=== PATIENT | male | born 1955 | race Caucasian/White ===

== ENCOUNTER → 2017-01-26 | Outpatient (CLI) | payer BC ==
[~2017-01-26] MED LIST: ASP81CT PO; CPR500T PO; ESCT10T PO; MELO-195 PO; RT-COMBINH IH
--- NOTE | 2017-01-26 13:39 | Diagnostic Imaging Report ---
EXAMINATION: Left heel INDICATION: Pain Heel and lateral views were obtained. There are no prior studies available for comparison. On the lateral view there is a thin band of increased density extending through the posterior inferior aspect of the calcaneus. There appears to a small corresponding area of increased density in this region on the heel view. This finding is of uncertain etiology. This may well be a sequela of prior trauma. It would be unlikely that this is related to an acute impaction fracture. However if further imaging is desired, then MRI would be recommended. There is no fracture, dislocation or acute bony abnormality evident otherwise. There is a prominent calcaneal spur. There is also a minute calcification along the posterior aspect of the calcaneus. I suspect that this is a sequela of prior trauma. The soft tissues are otherwise unremarkable. IMPRESSION: 1. The band of increased density extending through the posterior inferior aspect of the calcaneus may be a sequela of prior trauma. It would be unlikely that this is related to an acute injury. Recommendations as above. 2. There is no acute bony abnormality noted otherwise. 3. There is a prominent calcaneal spur. Dictated by: Dictated on workstation # [id number]
== END ==
LOC: RAD 12:07
PROVIDERS: ATTEND Nurse Practitioner Family
DX: M79.672 Pain in left foot (principal); M77.32 Calcaneal spur, left foot
CPT/HCPCS: 73650

== ENCOUNTER → 2017-08-16 | Outpatient (CLI) | payer BC ==
--- NOTE | 2017-08-16 13:09 | Diagnostic Imaging Report ---
PROCEDURE: CT chest without contrast. TECHNIQUE: Multiple contiguous axial images were obtained through the chest without the use of intravenous contrast. INDICATION: Interstitial lung disease. COMPARISON: 03/29/2016. FINDINGS: Paraseptal emphysema is seen in the upper lobes. There is a peripheral bullous formation in the lower lungs bilaterally with particularly one bulla posteriorly in the right lower lobe demonstrating prominent wall thickening, increased from the comparison exam of 03/29/2016. There is also suggestion of a small fluid level in this lesion. This could be sequela of a superimposed infection although minimal adjacent consolidation or atelectasis is seen in the dependent aspect of the right lower lobe. There is also mild bronchiectasis in the right lower lobe. There is no mass or suspicious nodule identified. The heart size is normal. No pericardial or pleural effusion. The thoracic aorta is normal in caliber. There is no mediastinal mass or significantly enlarged node seen. No definite hilar lymphadenopathy. No axillary lymphadenopathy is seen. Sections in the upper abdomen appear grossly unremarkable. The osseous structures appear grossly unremarkable. IMPRESSION: There are paraseptal emphysematous changes and peripheral blebs and bulla seen. One of the bulla in the right lower lobe demonstrates increased thickening compared to the previous study with adjacent mild consolidation or atelectasis, concerning for a superimposed infection. Correlate clinically. The report was faxed to the office of Dr. Davy Lacey by [email or web address]@ 1:07 PM. Dictated by: Dictated on workstation # [id number]
== END ==
LOC: RAD 08:57
PROVIDERS: ATTEND Internal Medicine
DX: J43.9 Emphysema, unspecified (principal)
CPT/HCPCS: 71250

== ENCOUNTER → 2017-08-19 | Outpatient (CLI) | payer BC ==
[~2017-08-19] MED LIST changes: +RT-ALBUTEROL SULF 2.5 MG/3 ML PRE-MIX VIAL IH ONE
== END ==
LOC: RT 16:20
PROVIDERS: ATTEND Internal Medicine
DX: J84.9 Interstitial pulmonary disease, unspecified (principal)
CPT/HCPCS: 94060; 94726; 94729

== ENCOUNTER 2017-09-04 16:15 | Outpatient (CLI) | payer BC ==
[~2017-09-04 16:15] MED LIST changes: -RT-ALBUTEROL SULF 2.5 MG/3 ML PRE-MIX VIAL IH ONE
== END 2017-09-04 16:38 | disposition home or self-care (01) ==
LOC: SLEEP 16:15
PROVIDERS: ATTEND Internal Medicine
DX: G47.33 Obstructive sleep apnea (adult) (pediatric) (principal)

== ENCOUNTER → 2018-03-06 | Outpatient (CLI) | payer BC, OTHER ==
--- NOTE | 2018-03-06 16:09 | Diagnostic Imaging Report ---
INDICATION: Pneumothorax. EXAMINATION: PA and lateral views of the chest were obtained at 4:17 p.m. COMPARISON: 03/22/2016. FINDINGS: Heart is normal in size. Mediastinal silhouette is unremarkable without evidence of shift. There is infiltrate and/or atelectasis in the right midlung and base. There is extensive subcutaneous air over the right chest wall. There is a questionable pneumothorax in the right medial superior chest. The left lung is clear. There is no left pneumothorax or pleural fluid. IMPRESSION: Infiltrate and/or atelectasis in the right midlung and base and right apex. Questionable right apical medial pneumothorax. Extensive subcutaneous air over the right chest wall. Followup is recommended. Dictated by: Dictated on workstation # [id number]
== END ==
LOC: RAD 15:46
PROVIDERS: ATTEND Internal Medicine
DX: J93.9 Pneumothorax, unspecified (principal)
CPT/HCPCS: 71046

== ENCOUNTER → 2018-03-21 | Outpatient (CLI) | payer BC, OTHER ==
--- NOTE | 2018-03-21 11:00 | Diagnostic Imaging Report ---
Clinical indication: Patient wheezing today. Patient has history of interstitial lung disease. Patient had collapsed lung approximately one month ago. Exam: Chest x-ray, PA and lateral views. Comparison: Chest x-ray dated 03/06/2018. Findings: There is stable appearance of consolidation and volume loss involving the right lung apex region and amorphous reticular and patchy areas of increased density involving the remainder of the right lung. These findings are concerning for atelectasis with or without scarring. There is stable appearance of a small to moderate amount of air in the suspected pleural space and the right lung apex and medial right lung region concerning for stable right pneumothorax. Subcutaneous air is again seen overlying the right low neck region and right extrathoracic soft tissue region. There is stable architectural distortion of the right lung base which may represent pleural effusion or pleural thickening/scarring. There is minimal atelectasis versus scarring in the left lung base. Otherwise, left lung is clear. Pulmonary vasculature and cardiac silhouette are within normal limits. Bones show no significant abnormality. Impression: 1: There is a moderate amount of extrathoracic subcutaneous air overlying the right lower neck and right extrathoracic region which has decreased compared to the prior study. The findings of persistent subcutaneous air may be from air leak from pneumothorax. 2: Otherwise, stable chest x-ray exam with concern for stable small to moderate-sized right pneumothorax. CT scan of the chest would better evaluate. 3: Stable architectural distortion with areas of consolidation and reticular changes involving the right lung and right lung apex which may be related to atelectasis and/or scarring. 4: Stable minimal left lung base atelectasis. Otherwise, left lung is clear. This report was discussed with Marie Montaño, nurse practitioner, via the telephone on 03/21/2018 at 1047 hrs. Dictated by: Dictated on workstation # [id number]
== END ==
LOC: RAD 10:16
PROVIDERS: ATTEND Thoracic Surgery (Cardiothoracic Vascular Surgery)
DX: J18.1 Lobar pneumonia, unspecified organism (principal); J44.9 Chronic obstructive pulmonary disease, unspecified; J98.19 Other pulmonary collapse; Z87.09 Personal history of other diseases of the respiratory system
CPT/HCPCS: 71046

== ENCOUNTER → 2018-05-02 | Outpatient (CLI) | payer BC, OTHER | LOC: WOUNDCARE 09:12 | PROVIDERS: ATTEND Nurse Practitioner | DX: T81.31XA Disruption of external operation (surgical) wound, not elsewhere classified, initial encounter (principal) | CPT/HCPCS: 99214 ==

== ENCOUNTER → 2018-05-07 | Outpatient (CLI) | payer BC, OTHER | LOC: WOUNDCARE 13:14 | PROVIDERS: ATTEND Surgery | DX: T81.31XA Disruption of external operation (surgical) wound, not elsewhere classified, initial encounter (principal); L98.492 Non-pressure chronic ulcer of skin of other sites with fat layer exposed; L02.213 Cutaneous abscess of chest wall; J86.0 Pyothorax with fistula | CPT/HCPCS: 10060 ==

== ENCOUNTER → 2018-10-09 | Outpatient (CLI) | payer BC, OTHER ==
[~2018-10-09] MED LIST changes: +BARIUM SUSPENSION 105% (LIQUID POLIBAR PLUS) 240 ML/DOSE PO ONE; +BARIUM SUSPENSION 60% (LIQUID EZ PAQUE) 240 ML DOSE PO ONE
--- NOTE | 2018-10-09 10:07 | Diagnostic Imaging Report ---
INDICATION: Difficulty swallowing solids for the last 4 months as well as pain in the right side of the throat. Patient has recent history of pneumothorax with hospitalization, chest tubes and intubation. TECHNIQUE: The patient ingested effervescent crystals as well as thin and thick barium and imaging of the esophagus was performed. A total of 1 minute and 27 seconds of fluoroscopy was utilized. FINDINGS: Preliminary radiograph of the abdomen does show emphysematous changes in both lungs. There is blunting of the right costophrenic angle which may indicate a small amount of pleural fluid or pleural thickening. There is some linear scarring present in the right lung. The esophagus has a fairly smooth contour. No definite mass or stricture is identified. No gastroesophageal reflux was demonstrated. There is a small sliding-type hiatal hernia. There is some mild generalized esophageal dysmotility. IMPRESSION: Essentially unremarkable esophagram apart from mild generalized dysmotility and a small hiatal hernia. No mass or stricture was demonstrated. Dictated by: Dictated on workstation # [id number]
== END ==
LOC: RAD 08:47
PROVIDERS: ATTEND Internal Medicine
DX: K22.4 Dyskinesia of esophagus (principal); K44.9 Diaphragmatic hernia without obstruction or gangrene; Z97.8 Presence of other specified devices; Z87.09 Personal history of other diseases of the respiratory system
CPT/HCPCS: 74220

== ENCOUNTER → 2021-02-03 | Outpatient (CLI) | payer OTHER ==
[~2021-02-03] MED LIST changes: -BARIUM SUSPENSION 105% (LIQUID POLIBAR PLUS) 240 ML/DOSE PO ONE; -BARIUM SUSPENSION 60% (LIQUID EZ PAQUE) 240 ML DOSE PO ONE
--- NOTE | 2021-02-03 12:51 | Diagnostic Imaging Report ---
INDICATION: Shortness of air and emphysema. TIME OF EXAM: 10:27 AM CORRELATION is made with prior chest 05/28/2018. Heart size is stable. There are emphysematous changes throughout both lungs. Right hemidiaphragm remains mildly elevated. There is chronic blunting of the right costophrenic angle. No pneumothorax is detected. IMPRESSION: Stable chronic changes when compared with the exam from 05/28/2018. Dictated by: Dictated on workstation # [id number]
== END ==
LOC: RAD 09:52
PROVIDERS: ATTEND Internal Medicine
DX: Z12.5 Encounter for screening for malignant neoplasm of prostate (principal); Z13.220 Encounter for screening for lipoid disorders; J43.9 Emphysema, unspecified; Z83.2 Family history of diseases of the blood and blood-forming organs and certain disorders involving the immune mechanism
CPT/HCPCS: 71046

== ENCOUNTER 2022-08-24 15:24 | Emergency (ER) | payer MEDICARE, OTHER ==
[~2022-08-24] VITALS: Ht 193.1 cm; Wt 108.8 kg
--- NOTE | 2022-08-24 16:12 | Diagnostic Imaging Report ---
INDICATION: Dyspnea and chest pain. EXAMINATION: AP view of chest was obtained. COMPARISON: 02/03/2021. FINDINGS: There is continued elevation of the right hemidiaphragm with prominent interstitial markings likely reflecting scarring. There is no evidence of pneumothorax. Probable pleural-parenchymal scarring is noted in the right apex. IMPRESSION: Background chronic findings may be on the basis of COPD and fibrosis however no definite acute infiltrate is seen. There is an increased density in the right apex which could be further evaluated with short-term radiography or possible CT imaging, if indicated. Dictated by: Dictated on workstation # [id number]
--- NOTE | 2022-08-24 16:23 | ED Respiratory ---
General Chief Complaint: COVID19 Suspect/Confirmed Stated Complaint: COVID +/SOA/COUGH Nursing Triage Note: PT AMB TO RM 9 WITH COMPLAINT OF SOA, RIB PAIN, FEVER. STATES TESTED POSITIVE FOR COVID YESTERDA WITH SYMPTOMS STARTING ON SATURDAY OR SATURDAY. Source: patient Exam Limitations: no limitations (ANURADHA ZHAO APRN) History of Present Illness Date Seen by Provider: Aug 24, 2022 Time Seen by Provider: 15:35 Initial Comments Patient is a 67-year-old male who presents to the emergency department for evaluation of shortness of air, rib pain, and fever that began 3 to 4 days ago. Patient took a home COVID test that was positive yesterday. Patient states that shortness of air is worse with exertion. He endorses a history of emphysema and had surgery on his right lung after it collapsed several years ago. States the pain in his chest wall is worse when he coughs. His daughter is a nurse practitioner and she gave the patient prescriptions for albuterol inhaler and Paxlovid. Patient has had no other medications today. (ANURADHA ZHAO APRN) Allergies and Home Medications Allergies Coded Allergies: No Known Allergies (Verified Allergy, Unknown, 11/10/06) Patient Home Medication List Home Medication List Reviewed: Yes (ANURADHA ZHAO APRN) Aspirin (Aspirin 81 Mg Chew Tab) 81 Mg Chew, 81 MG PO DAILY, (Reported) Entered as Reported by: NEVAEH WASHINGTON on 04/03/111522 Ciprofloxacin (Cipro) 500 Mg Tablet, 1 TAB PO BID, (Reported) Entered as Reported by: MISAEL PANTOJA on 04/03/111514 Escitalopram Oxalate (Lexapro) 10 Mg Tablet, 10 MG PO DAILY, (Reported) Entered as Reported by: MISAEL PANTOJA on 04/03/111514 Ipratropium/Albuterol Sulfate (Combivent Inhaler) 14.7 Gm Aer.w.adap, 2 PUFF IH QID, (Reported) Entered as Reported by: MISAEL PANTOJA on 04/03/111514 Meloxicam (Meloxicam) 15 Mg Tablet, 15 MG PO DAILY, (Reported) Entered as Reported by: MISAEL PANTOJA on 04/03/111514 Review of Systems Review of Systems Constitutional: see HPI, fever, malaise EENTM: no symptoms reported Respiratory: see HPI, cough, short of breath Cardiovascular: see HPI, chest pain (left rib pain) Gastrointestinal: no symptoms reported Genitourinary: no symptoms reported Musculoskeletal: no symptoms reported Skin: no symptoms reported Psychiatric/Neurological: No Symptoms Reported (ANURADHA ZHAO APRN) Past Btashtn-Gwmhwf-Lpzfyr Hx Patient Social History Tobacco Use?: No Use of E-Cig and/or Vaping dev: No Substance use?: No Alcohol Use?: Yes Alcohol Frequency: Once in a while Pt feels they are or have been: No (ANURADHA ZHAO APRN) Immunizations Up To Date Influenza Vaccine Up-to-Date: Yes; Up-to-Date First/Initial COVID19 Vaccinat: 2020 Second COVID19 Vaccination Virgilio: 2020 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 oz. kg; 29.00 BMI Method: General Appearance: WD/WN, no apparent distress HEENT: PERRL/EOMI, normal ENT inspection, TMs normal, pharynx normal Neck: non-tender, full range of motion, supple, normal inspection Respiratory: chest non-tender, lungs clear, normal breath sounds, no respiratory distress, no accessory muscle use Cardiovascular: regular rate, rhythm Gastrointestinal: normal bowel sounds, non tender, soft Extremities: normal range of motion, non-tender, normal inspection, no pedal edema, no calf tenderness Neurologic/Psychiatric: no motor/sensory deficits, alert, normal mood/affect, oriented x 3 Skin: normal color, warm/dry (ANURADHA ZHAO APRN) Progress/Results/Core Measures Suspected Sepsis SIRS Temperature: Pulse: 87 Respiratory Rate: 16 Blood Pressure 142 /96 Mean: 111 (ANURADHA ZHAO APRN) Results/Orders Vital Signs/I&O 08/24/22 08/24/22 15:30 16:29 Temp 38.7 Pulse 87 87 Resp 16 16 B/P (MAP) 142/96 (111) 142/96 Pulse Ox 96 96 O2 Delivery Room Air Room Air (SHAMAR MAGANA MD) Vital Signs/I&O Capillary Refill : Less Than 3 Seconds (ANURADHA ZHAO APRN) Blood Pressure Mean: 111 Progress Note : Progress Note Patient is nontoxic and well-hydrated on exam. No adventitious lung sounds or i ncreased work of breathing noted. Vital signs are reassuring with no hypoxia. Patient was noted to have a fever. He was defervesced with antipyretic. Symptoms are consistent with COVID. He is appropriately being treated with Paxlovid given increased risk due to his history of lung disease. No indication for further diagnostics at this time. Patient does not meet criteria for inpatient admission. Discussed supportive care and anticipatory guidance. Follow-up with PCP. Return precautions for urgent symptomology discussed. Patient verbalized understanding. (ANURADHA ZHAO APRN) Departure Impression Primary Impression: COVID-19 Disposition: 01 HOME, SELF-CARE Condition: Stable Departure-Patient Inst. Decision time for Depature: 16:20 (ANURADAH ZHAO APRN) Referrals: JOHN MCKEON DO (PCP/Family) Primary Care Physician Patient Instructions: COVID-19 Home Care/Discharge ATTENDING PHYSICIAN NOTE: I was physically present as attending physician in the emergency department during the care of this patient, but I was not directly involved in the decision making or delivery of care for this patient. (SHAMAR MAGANA MD) ANURADHA ZHAO APRN Aug 24, 2022 16:23 SHAMAR MAGANA MD Aug 25, 2022 20:26
[2022-08-24 16:29] VITALS: BP 142/96
== END 2022-08-24 16:29 | disposition home or self-care (01) ==
LOC: EDUNIT# 15:24 → ER 15:29
DX: U07.1 COVID-19 (principal); R50.9 Fever, unspecified
CPT/HCPCS: 71045